=== PATIENT | male | born 1970 | race Caucasian/White ===

== ENCOUNTER → 2019-07-31 10:49 | Outpatient (BNVA) | payer BC, SELFPAY | PROVIDERS: Family Provider Family Medicine; PCP Family Medicine; Visit Provider Specialist | DX: M50.020 Cervical disc disorder with myelopathy, mid-cervical region, unspecified level (principal); F17.210 Nicotine dependence, cigarettes, uncomplicated | CPT/HCPCS: 95910 ==

== ENCOUNTER 2019-08-04 13:52 | Outpatient (CLI) | payer BC, SELFPAY ==
--- NOTE | 2019-08-04 14:29 | MR_ITS ---
WS: [id number] MRI CERVICAL SPINE NONCONTRAST TECHNIQUE: Sagittal T1, T2 and STIR imaging. Axial T2, gradient, and fiesta imaging. CLINICAL INFORMATION: NECK PAIN COMPARISON: April 13, 2016 FINDINGS: Straightening of the normal cervical lordosis. Anterior interbody cervical fusion C5-6. Cord signal i s normal. C2-C3: Mild right greater than left bony foraminal narrowing. Moderate facet arthropathy. C3-C4: Tiny central disc protrusion. Mild central canal stenosis. Mild bilateral foraminal narrowing. Mild/moderate facet arthropathy. C4-C5: Broad-based central disc protrusion with mild to moderate central canal stenosis and slight in dentation on cervical cord. Mild to moderate left and no significant right foraminal narrowing. Moder ate facet arthropathy. C5-C6: Postoperative changes anterior interbody cervical fusion. Moderate left and no significant rig ht bony foraminal narrowing. Mild facet arthropathy. C6-C7: Broad-based central disc osteophyte protrusion with moderate central canal stenosis and slight contact of the cervical cord. Moderate to severe left and moderate right bony foraminal narrowing. M ild facet arthropathy. C7-T1: Mild disc bulging and osteophytic ridging. Moderate right and mild left bony foraminal narrowi ng. Mild facet arthropathy Visualized brain stem structures: Normal. Prevertebral soft tissues: Normal. MR/MR cervical spin wo con* [id number] IMPRESSION: 1. Straightening of the normal cervical lordosis. Cord signal is normal. 2. Prior postoperative changes anterior interbody cervical fusion C5-C6. 3. Shallow central disc protrusion C4-C5 with slight indentation on the cervic al cord and mild to moderate central canal stenosis. This is progressed since 2 017. 4. Moderate central canal stenosis C6-C7 due to broad base disc osteophyte com plex with slight indentation on the cervical cord. This is similar in appearanc e to 2017. 5. Multilevel bony foraminal narrowing worse at left C5-C6, left C6-7, and rig ht C7-T1.
== END 2019-08-04 13:53 | disposition home or self-care (01) ==
LOC: RADWPI 13:53
PROVIDERS: Family Provider Family Medicine; PCP Family Medicine; Visit Provider Registered Nurse
DX: M50.30 Other cervical disc degeneration, unspecified cervical region (principal); M43.22 Fusion of spine, cervical region; M50.221 Other cervical disc displacement at C4-C5 level; M48.02 Spinal stenosis, cervical region
CPT/HCPCS: 72141

== ENCOUNTER 2019-12-22 09:03 | Outpatient (CLI) | payer BC, SELFPAY ==
--- NOTE | 2019-12-22 09:29 | MR_ITS ---
WS: [id number] MRI LEFT SHOULDER NONCONTRAST TECHNIQUE: Sagittal T2, coronal T1, T2 and proton density imaging. Axial gradient PDE imaging. CLINICAL INFORMATION: ACUTE PAIN OF LEFT SHOULDER COMPARISON: MRI 6 [id number] FINDINGS: Moderate degenerative arthritis at the AC joint with mild downsloping of the acromion. Slight subacro mial spurring. Distal supraspinatus is intact. Normal infraspinatus. Normal teres minor and subscapul jhon. No full-thickness rotator cuff tears. Small amount of tendinopathy in the distal supraspinatus similar in appearance to the prior examination. Normal biceps labral anchor. Normal biceps tendon in the bicipital groove. Normal physiologic fluid a long the biceps tendon sheath. Normal glenoid labrum. Bony glenoid and humerus appear normal. MR/MR shoulder LT wo con* [id number] IMPRESSION: 1. Moderate degenerative arthritis at the AC joint with mild downsloping acrom ion and mild edema. 2. No full-thickness rotator cuff tears. 3. Small amount of tendinopathy in the distal supraspinatus unchanged. 4. Normal biceps in the bicipital groove.
== END 2019-12-22 09:04 | disposition home or self-care (01) ==
LOC: RADWPI 09:09
PROVIDERS: Family Provider Registered Nurse; PCP Registered Nurse; Visit Provider Registered Nurse
DX: M19.012 Primary osteoarthritis, left shoulder; R60.0 Localized edema
CPT/HCPCS: 73221

== ENCOUNTER → 2020-12-25 11:40 | Outpatient (BNVA) | payer OTHER, SELFPAY | PROVIDERS: PCP Registered Nurse; Visit Provider Surgery | DX: K64.9 Unspecified hemorrhoids (principal); K92.1 Melena; Z20.822 Contact with and (suspected) exposure to COVID-19 | CPT/HCPCS: 87635 ==

== ENCOUNTER 2021-01-01 07:45 | Day surgery (SDC) | payer OTHER, SELFPAY ==
[2020-12-31 09:44] VITALS: BMI 29.5
[2021-01-01 08:08] VITALS: BP 146/101; PULSE 65; RESP 18; TEMP 36.3; O2SAT 98
[2021-01-01] MEDS: sodium chloride 0.9% 1,000 ML 30 ML IV (08:17)
--- NOTE | 2021-01-01 08:24 | W.PM.OPSUD ---
Surgery/Procedure H&P Update DATE OF PROCEDURE: January 01, 2021 DATE H&P PERFORMED: 12/23/20 H&P UPDATE INFORMATION: I have reviewed H&P completed within last 30 days, I have examined patient prior to procedure and No changes to prior documentation PREOP DIAGNOSIS: Hematochezia PLANNED PROCEDURE: Operation Date: 01/01/21 09:10 Proposed Procedures p Hemorroidectomy [id number] K92.1 K64.9(Not Applicable) - Randolph Marcos MD s Colonoscopy(Not Applicable) - Randolph Marcos MD
--- NOTE | 2021-01-01 08:57 | P.ANESASSM_ITS ---
Pre-Anesthetic Assessment Pre-Anesthetic Assessment: Height/Weight: Height 1.75 m Weight 90.718 kg Temp Pulse Resp BP Pulse Ox 97.3 F L 65 18 146/101 98 01/01/21 08:08 01/01/21 08:08 01/01/21 08:08 01/01/21 08:08 01/01/21 08:08 Preop Diagnosis: Hematochezia Proposed Procedure: Operation Date: 01/01/21 09:10 Proposed Procedures p Hemorroidectomy [id number] K92.1 K64.9(Not Applicable) - Randolph Marcos MD s Colonoscopy(Not Applicable) - Randolph Marcos MD Was Beta Claritza taken within 24 hours: Yes Was Clonidine taken within 24 hours: N/A Last intake: Intake Last Liquid Date 12/31/20 Last Liquid Time 21:00 Last Solid Date 12/30/20 Last Solid Time 21:00 Social: Social History: Alcohol and Tobacco Packs per day: 1 ppd Exam: Pre-Anes Outpt Exam: alert, oriented x 3 and clear to auscultation bilaterally Airway: Submandibular: WNL Cervical ROM: WNL MP: 1 Dentition: Chipped and Other Additional comments: very poor dentition History/ROS: No significant complaints Pulmonary: Pulmonary: None reported CV/HEM: CV/HEM: HTN : : None reported Hepatic: Hepatic: None reported GI: GI: None reported Musc/skel: Musc/skel: None reported Neuropsych: Neuropsych: None reported Anesthetic Plan: ASA status: 2 Anesthesia: General Risk of > 500 ml blood loss (7ml/kg in children): No Meds/Allergies Current Medications: Current Medications Generic Name Dose Route Start Last Admin Trade Name Freq PRN Reason Stop Dose Admin Sodium Chloride 1,000 mls @ 30 ml s/hr 01/01/21 08:00 01/01/21 08:17 Sodium Chloride 0.9% IV 01/02/21 07:59 30 mls/hr .Q24H NYA Administration PFSH Anesthesia PFSH: Medical History (Updated 12/23/20 @ 09:42 by Randolph Marcos MD) Cervical disc disorder with myelopathy of mid-cervical region Hypertension Surgical History (Updated 12/23/20 @ 09:42 by Randolph Marcos MD) History of appendectomy History of cholecystectomy History of fusion of cervical spine (06/19/10) Dr. Valle C5-C6 ACDFF, 06/19/2010. 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
[2021-01-01 10:06] VITALS: BP 117/77; PULSE 70; RESP 20; TEMP 36.6; O2SAT 98
[2021-01-01 10:10] VITALS: BP 121/66; PULSE 72; RESP 16; TEMP 36.6; O2SAT 95
[2021-01-01 10:15] VITALS: BP 118/97; PULSE 70; RESP 16; TEMP 36.6; O2SAT 95
[2021-01-01 10:30] VITALS: BP 130/90; PULSE 69; RESP 15; TEMP 36.6; O2SAT 96
--- NOTE | 2021-01-01 13:09 | PM.OP ---
Operative Report Date of procedure: January 01, 2021 Pre-op Diagnosis: Hematochezia Post-op Diagnosis: 1. 5 mm sessile rectal polyp removed with cold biopsy forceps 2. Scattered diverticuli sigmoid colon 3. Internal hemorrhoids x2 Procedure Done: 1. Colonoscopy with biopsy using cold biopsy forceps 2. Banding of internal hemorrhoids x2 Specimens removed/disposition: 1. Rectal polyp Surgeon: Randolph Marcos Anesthesia: MAC Condition: stable Disposition: PACU Procedure: The patient was taken to the operating room and placed in left lateral position under MAC a digital rectal exam revealed a thrombosed external hemorrhoid and small internal hemorrhoids. The colonoscope was introduced and advanced up to cecum with ileocecal valve and appendicular orifice was visualized. The colon prep was fair. Cecum: Normal Ascending colon: Normal Transverse colon: Normal Descending colon: Normal Sigmoid colon: Normal Rectum: Grade 1 internal hemorrhoids x2, 5 mm sessile polyp removed with cold biopsy forceps MILTON: Grade 1 internal hemorrhoids The colonoscope was withdrawn. An anoscope was introduced and the grade 1 hemorrhoid on the left side was grasped at its base about the dentate line and band was placed using a band applicator.the grade 1 hemorrhoid on the right side was grasped at its base about the dentate line and band was placed using a band applicator.
--- NOTE | 2021-01-01 13:15 | ANE.PACU2 ---
Inpatient post-anesthesia follow up: Airway intact: Yes Vital signs: Temperature 97.9 F Pulse Rate 69 Respiratory Rate 15 Blood Pressure 130/90 Pulse Oximetry 96 Oxygen Delivery Me thod Room Air Oxygen Flow Rate Fraction of Inspir ed Oxygen Hydration adequate: Yes Nausea and vomiting: No Pain level: 2 Mental status: Baseline
== END 2021-01-01 10:45 | disposition home or self-care (01) ==
PROVIDERS: PCP Registered Nurse; Visit Provider Surgery
PROC: (CPT 45380; principal; 2021-01-01 09:10)
PROC: 0DJD8ZZ Inspection of Lower Intestinal Tract, Via Natural or Artificial Opening Endoscopic (ICD-10-PCS; CPT 45378; 2021-01-01 09:10)
DX: K92.1 Melena (principal); K64.8 Other hemorrhoids; K57.30 Diverticulosis of large intestine without perforation or abscess without bleeding; I10 Essential (primary) hypertension; F17.210 Nicotine dependence, cigarettes, uncomplicated; Z79.82 Long term (current) use of aspirin
CPT/HCPCS: 45380; 46221; 88305; J0330; J0690; J1100; J2250; J2405; J2704; J3010; J3490; J7030

== ENCOUNTER 2023-03-16 07:26 | Emergency (ER) | payer OTHER, BC, MEDICAID, SELFPAY ==
[2023-03-16 07:41] VITALS: BP 131/92; PULSE 78; RESP 18; TEMP 36.6; O2SAT 96; BMI 30.1
[2023-03-16 07:44] VITALS: BP 131/92; PULSE 74; RESP 21; O2SAT 96
--- NOTE | 2023-03-16 07:55 | XR_ITS ---
WS: [id number] Exam: XR chest 1V portable [id number] Date/Time of Exam: 03/16/2023 8:13 AM Reason For Exam: dyspnea/cough No priors. The lungs are clear and fully expanded. Normal cardiomediastinal silhouette and regional bony element s. Nipple shadows are projected over the lower lung zones. Fusion hardware in the lower C-spine. IMPRESSION: 1. Negative chest.
--- NOTE | 2023-03-16 07:56 | ED_ITS ---
HPI - Back Pain/Injury General: Chief Complaint: Back Pain/Injury Stated Complaint: left shoulder/back pain Time Seen by Provider: 03/16/23 07:28 Source: patient Mode of arrival: ambulatory History of Present Illness: 52-year-old male presents emergency room with left shoulder and back pain accompanied with shortness of breath recently tested positive for COVID. He had a home positive test. This test was positive on 03/12. His symptoms had began a few days prior. He was started on Paxlovid by his primary care physician the day of the testing. He has a previous history of a left shoulder surgery no recent trauma or injury. Cough has been nonproductive. MD elicited complaint: back pain and other (Left shoulder pain, COVID) Pertinent past history: other (Previous left shoulder surgery) Onset (ago): day(s) Timing: constant Severity: moderate Quality: aching (Left shoulder and back) Location: lumbar spine Exacerbating factors: movement Relieving factors: none Associated symptoms: Reports fatigue; Deny abdominal pain, arthralgias, chills, change in bowel habits, difficulty walking, dysuria, fecal incontinence, fever(s), hematuria, myalgias, nausea, numbness, syncope, tingling/numbness/burning, urinary frequency, urinary urgency, vomiting or weakness Review of Systems Const: Reports: fatigue and malaise; Denies: fever(s) or chills Card: Denies: chest pain or syncope Resp: Denies: dyspnea GI: Denies: abdominal pain, nausea, vomiting, fecal incontinence or change in bowel habits : Denies: dysuria, urinary frequency, urinary urgency or hematuria Musc: Reports: back pain and joint pain (Left shoulder); Denies: neck pain Skin/Breast: Denies: rash Neuro: Reports: headache(s); Denies: difficulty walking PFSH ED PFSH: Medical History Hypertension Cervical disc disorder with myelopathy of mid-cervical region Surgical History Status post colonoscopy History of shoulder surgery History of cholecystectomy History of fusion of cervical spine (06/19/10) Dr. Valle C5-C6 ACDFF, 06/19/2010. 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 Physical Exam Const: COMMON NORMALS: no acute distress GENERAL APPEARANCE: cooperative and comfortable ORIENTATION/CONSCIOUSNESS: Yes awake, Yes oriented to person, Yes oriented to place and Yes oriented to time HENMT: COMMON NORMALS: normocephalic, atraumatic and hearing grossly normal bilaterally HEAD & SCALP: normocephalic and atraumatic Resp: COMMON NORMALS: normal respiratory effort, No retractions, No use of accessory muscles and clear to auscultation bilaterally AUSCULTATION: clear to auscultation bilaterally Cardio: COMMON NORMALS: regular rate, regular rhythm and No murmurs present (Cardio) RATE: regular rate RHYTHM: regular rhythm GI: COMMON NORMALS: Soft to palpation and No hepatosplenomegaly present AUSCULTATION: Yes normoactive bowel sounds PALPATION: Yes Soft to palpation, No Tenderness to palpation present (GI), No Guarding due to palpation present (GI) and Yes No hepatosplenomegaly present Extremity: COMMON NORMALS: normal to inspection, capillary refill normal, no clubbing, cyanosis or edema, no calf tenderness and no pedal edema Neuro: SENSORIUM/ORIENTATION: Yes oriented to person, Yes oriented to place and Yes oriented to time Skin: COMMON NORMALS: no rashes or lesions noted GENERAL SKIN EXAM: no rashes or lesions noted Course Vital Signs: Vital signs: Vital Signs Temperature 97.8 F 03/16/23 07:41 Pulse Rate 74 03/16/23 07:44 Respiratory Rate 21 H 03/16/23 07:44 Blood Pressure 131/92 03/16/23 07:44 Pulse Oximetry 96 03/16/23 07:44 Oxygen Delivery Me thod Room Air 03/16/23 07:44 MDM - Back Pain/Injury Medical Decision Making Chest x-ray unremarkable EKG does not show any acute ST changes normal sinus rhythm normal [place] interval. Will discharge patient home his chest pain is worse with deep inspiration his shoulder pain is worse with movement oxygen saturation is normal no tachycardia no sign of acute coronary syndrome or PE at this point I believe his musculoskeletal symptoms and pleuritic symptoms are due to the COVID infection can use diclofenac instead of ibuprofen. Medical Records I reviewed the patient's medical records. Labs I reviewed the patient's lab results. All radiology interpretation(s) finalized by discharge Discharge Plan Discharge Patient Disposition: Home Clinical Impression: COVID-19 Condition: Stable Prescriptions: New diclofenac sodium 75 mg tablet,delayed release (DR/EC) 75 mg PO Q12H PRN (Reason: pain) Qty: 20 0RF Discontinued ibuprofen 800 mg tablet 800 mg PO Q6H PRN (Reason: Pain) No Action losartan 100 mg tablet 100 mg PO DAILY omega-3 fatty acids [Fish Oil Concentrate] 1,000 mg capsule 1,000 mg PO DAILY fluoxetine [Prozac] 20 mg capsule 20 mg PO DAILY omeprazole 20 mg capsule,delayed release(DR/EC) 20 mg PO DAILY testosterone cypionate 200 mg/mL kit 300 mg IM .[id number] tadalafil [Cialis] 2.5 mg tablet 2.5 mg PO DAILY aspirin [Adult Aspirin Regimen] 81 mg tablet,delayed release (DR/EC) 81 mg PO DAILY metoprolol tartrate 25 mg tablet 12.5 mg PO DAILY Colace 100 mg capsule 100 mg PO BID Qty: 30 0RF lactulose 10 gram/15 mL solution 15 ml PO DAILY Qty: 237 2RF Discharge Orders: Discharge ED (Routine); Ordered 03/16/23 Ordered By: Rico Keyes Referrals: Lili Aleman [Primary Care Provider] - Discharge Diet: Usual diet Discharge Activity: Increase activity as tolerated Patient Instructions: COVID-19 (Coronavirus Disease 2019) (ED), Opioid Safety, Pain Management Activity Restrictions/Additional Instructions: Thank you for choosing [facility] for your healthcare needs today. Please realize this is an emergency room and that we are providing you with a medical screening exam and this may not be complete and all inclusive of all the testing and or work up that you may need to determine your ailment or severity of your illness. It is very important that you follow up as instructed or that you return to the Emergency Department should you have concerns or if your condition changes or worsens in any way. You are seen today for chest and shoulder discomfort. EKG is normal chest x-ray is normal. Symptoms you are experiencing are likely related to your COVID infection. You can use diclofenac or Tylenol as needed. Your oxygen saturations are normal. Coding Level of Care Code ED Etymology Professor for Conner Goldstein
--- NOTE | 2023-03-16 07:57 | ECG_ITS ---
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 Measurements Intervals [place] Rate: 67 P: 45 ME: 145 QRS: 54 QRSD: 85 T: 43 QT: 353 QTc: 375 Interpretive Statements SINUS RHYTHM No previous ECG available for comparison Electronically Signed On 03-16-2023 8:16:00 CLINICAL ACCOUNT EXECUTIVE by Luke Pham M.D. [email or web address]
[2023-03-16] MEDS: ketorolac 30 mg/mL INJ IVP (08:15)
[2023-03-16 08:44] VITALS: BP 131/92; PULSE 77; O2SAT 97
== END 2023-03-16 08:50 | disposition home or self-care (01) ==
PROVIDERS: Emergency Provider Family Medicine; PCP Registered Nurse
DX: U07.1 COVID-19 (principal); Z79.82 Long term (current) use of aspirin; I10 Essential (primary) hypertension; Z72.0 Tobacco use
CPT/HCPCS: 71045; 93005; 96374; 99284; J1885

== ENCOUNTER → 2025-03-12 13:46 | Outpatient (BNVA) | payer BC, MEDICAID, SELFPAY | PROVIDERS: PCP Registered Nurse; Visit Provider Internal Medicine | DX: J44.9 Chronic obstructive pulmonary disease, unspecified (principal) | CPT/HCPCS: 36415; 85025 ==